=== PATIENT | male | born 1975 | race Caucasian/White ===

== ENCOUNTER 2017-09-15 18:40 | Emergency (ER) | payer OTHER ==
[~2017-09-15 18:40] MED LIST: ADVAIR DISKUS 21 DSK PO; ALPRAZOLAM0.5 M3 PO; AMLODIPINE BESYL5 M1 PO; AUGMENTIN 500M500 MG PO; AUGMENTIN 875-1 EACH PO; CITALOPRAM HBR40 MG PO; CITALOPRAM HYDR40 MG PO; DEPAKOTE250 MG PO; DEPAKOTE500 MG PO; DIVALPROEX SOD250 M2 PO; DIVALPROEX SOD500 M2 PO; ESCITALOPRAM20 MG PO; GABAPENTIN100 MG PO; GABAPENTIN300 M2 PO; GABAPENTIN300 MG PO; METHYLPREDNISONE4 MG PO; NORVASC 5MG TAB5 MG PO; PANTOPRAZOLE SO40 MG PO; PROAIR HFA0.09 MG/Ac INH; PROAIR HFA0.09 MG/Ac PO; QUETIAPINE FUM100 M1 PO; QUETIAPINE FUMA25 MG PO; SEROQUEL 25MG25 MG PO; TYLENOL WITH C1 EACH PO; VITAMIN D250000 UNIT PO
--- NOTE | 2017-09-15 18:50 | ED GENERAL ADULT ---
History of Present Illness General Chief Complaint: ETOH/Drug Related Complaint Stated Complaint: ETOH? Source: patient, EMS, friend Exam Limitations: poor historian, intoxication Vital Signs & Intake/Output Vital Signs & Intake/Output Vital Signs Date Time Temp Pulse Resp B/P B/P Pulse O2 O2 Flow FiO2 Mean Ox Delivery Rate 09/16 0621 97.4 85 18 115/58 98 Room Air 09/16 0205 97.5 75 14 116/71 97 Room Air 09/15 2359 80 104/59 09/15 2218 98.9 75 16 97/55 97 Room Air 09/15 1852 98.6 104 17 131/75 97 Room Air Allergies Coded Allergies: NO KNOWN ALLERGIES (02/22/16) Reconcile Medications Amlodipine Besylate 5 MG TABLET 1 TAB PO DAILY HTN (Reported) Citalopram Hydrobromide (Citalopram HBr) 40 MG TABLET 1 TAB PO DAILY MENTAL HEALTH (Reported) Divalproex Sodium 250 MG TABLET.DR 1 TAB PO BID SEIZURES (Reported) Divalproex Sodium 500 MG TABLET.DR 1 TAB PO BID SEIZURES (Reported) Ergocalciferol (Vitamin D2) (Vitamin D2) 50,000 UNIT CAPSULE 1 CAP PO QW SUPPLEMENT (Reported) Gabapentin 300 MG CAPSULE 1 CAP PO BID SEIZURES (Reported) Quetiapine Fumarate 100 MG TABLET 1.5 TAB PO QPM INSOMNIA (Reported) Triage Note: PT BROUGHT TO ED BY FRIENDS WITH REPORT OF SEIZURE ACTIVITY WITNESSED BY FRIENDS. REPORTS SEIZURE HX, ARRIVES ALERT, IMPULSIVE, FORGETFUL. BLOOD SUGAR 88 ON ARRIVAL. PT DENIES DAILY ETOH USE OR DRUG USE Triage Nurses Notes Reviewed? yes Onset: Abrupt Duration: hour(s): Timing: recent history HPI: 09/15/17 8 PM 41-year-old male presents to the emergency department after a generalized seizure. The patient apparently has a history of seizures. He was in the back of a car and had a seizure. He presented to the emergency department post ictal. He was combative. No history of trauma. The patient's mother later arrived at the ED and stated that he has posttraumatic brain injury, has a plate in his head, at this time now 8:20 PM he is awake alert and oriented 3 and is no longer agitated. He was initially put in restraints but these will not be discontinued. (Tejas Vargas DO) Past History Travel History Traveled to [place] past 21 day No Medical History Any Pertinent Medical History? 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 No (Tejas Vargas DO) Review of Systems Review of Systems Constitutional: Reports: no symptoms. EENTM: Reports: see HPI. Respiratory: Reports: no symptoms. Cardiovascular: Reports: no symptoms. GI: Reports: no symptoms. Genitourinary: Reports: no symptoms. Musculoskeletal: Reports: no symptoms. Skin: Reports: no symptoms. Neurological/Psychological: Reports: see HPI. Hematologic/Endocrine: Reports: no symptoms. Immunologic/Allergic: Reports: no symptoms. (Tejas Vargas DO) Physical Exam Physical Exam General Appearance: alert, awake, anxious, severe distress Head: normal appearance Eyes: Bilateral: normal appearance, PERRL, EOMI. Ears, Nose, Throat: normal pharynx, normal ENT inspection Neck: normal inspection, supple Respiratory: normal breath sounds, chest non-tender, no respiratory distress Cardiovascular: regular rate/rhythm Peripheral Pulses: 4+ radial (R), 4+ radial (L) Gastrointestinal: non-tender Back: normal range of motion Extremities: normal inspection Neurologic/Psych: awake, postictal, nonfocal Skin: intact, normal color, warm/dry Core Measures ACS in differential dx? No CVA/TIA Diagnosis: No Sepsis Present: No Sepsis Focused Exam Completed? No (Tejas Vargas DO) Progress Differential Diagnoses I considered the following diagnoses in my evaluation of the patient: [Seizure disorder traumatic brain injury, intracranial bleed, drug intoxication, alcohol intoxication, alcohol withdrawal] Plan of Care: Orders Procedure Date/time Status Regular Diet 09/16 B Active Restraint- Discontinue 09/15 2025 Active Add-on Test (ER Only) 09/16 1999 Active Patient Safety Monitor 09/16 1999 Active Restraint- Behavioral (Order) 09/16 1999 Active TROPONIN LEVEL 09/15 1899 Complete URINE DRUGS OF ABUSE 09/15 1856 Complete ETHANOL 09/15 1856 Complete DEPAKOTE LEVEL 09/15 1856 Complete COMPREHENSIVE METABOLIC PANEL 09/15 1856 Complete CBC WITHOUT DIFFERENTIAL 09/15 1856 Complete Laboratory Tests 09/16/17 0625: Urine Opiates Screen < 100, Methadone Screen 43, Barbiturate Screen < 60, Ur Phencyclidine Scrn < 6.00, Amphetamines Screen < 100, U Benzodiazepines Scrn < 85, Urine Cocaine Screen < 50, Urine Cannabis Screen < 5.00 09/15/171899: Anion Gap 23 H, Estimated GFR > 60, BUN/Creatinine Ratio 5.6 L, Glucose 90, Calcium 9.5, Total Bilirubin 0.8, AST 65 H, ALT 28, Alkaline Phosphatase 78, Troponin I < 0.01, Total Protein 7.5, Albumin 4.7, Globulin 2.8, Albumin/ Globulin Ratio 1.7, CBC w Diff NO MAN DIFF REQ, RBC 4.74, MCV 92.7, MCH 30.3, MCHC 32.7 L, RDW 15.4 H, MPV 7.7, Gran % 51.6, Lymphocytes % 39.9, Monocytes % 7.0, Eosinophils % 1.1, Basophils % 0.4, Absolute Granulocytes 6.7 H, Absolute Lymphocytes 5.2 H, Absolute Monocytes 0.9 H, Absolute Eosinophils 0.1, Absolute Basophils 0, Valproic Acid 46.9 L, Serum Alcohol < 10.0 Initial ED EKG: pending Comments: 09/15/17 The patient was signed out to Dr. Mann at 7:30. (Tejas Vargas DO) Diagnostic Imaging: Viewed by Me: CT Scan. Discussed w/RAD: CT Scan. Radiology Impression: 1. There are no acute bleeds or new territorial infarcts. 2. There are sequelae of a right calvarial cranioplasty. There is a stable large area of gliosis and encephalomalacia in the right temporoparietal region. Hand-Off Endorsed To: Tejas Nettles MD Endorsed Time: 0700 Pending: other (mother 8AM) (Osei Mann MD) Comments: 09/16/2017 7:16:33 AM patient signed out to me by at shift private branch exchange service adviser. (Yoon STINSON,Tejas Geiger) Departure Departure Disposition: STILL A PATIENT Condition: Stable Clinical Impression Primary Impression: Seizure disorder Secondary Impressions: Agitation Departure Forms: Customer Survey General Discharge Information (Tejas Vargas DO) Departure Referrals: De STINSON,Rubens Lara (PCP/Family) (Osei Mann MD) Critical Care Note Critical Care Note Critical Care Time: 30-74 min (Tejas Vargas DO)
[2017-09-15 19:09] LABS: ABSOLUTE BASOPHIL COUNT 0 /CUMM (0.0-0.2); ABSOLUTE EOSINOPHIL COUNT 0.1 /CUMM (0.0-0.7); ABSOLUTE GRANULOCYTE CT 6.7 /CUMM (1.4-6.5); ABSOLUTE LYMPH COUNT 5.2 /CUMM (1.2-3.4); ABSOLUTE MONOCYTE COUNT 0.9 /CUMM (0.10-0.60); BASOPHIL % 0.4 % (0.0-2.0); EOSINOPHIL % 1.1 % (0-5); GRANULOCYTE % 51.6 % (42.2-75.2); HEMATOCRIT 43.9 % (42-52); MEAN CORPUSCULAR HGB 30.3 PG (27.0-31.0); MEAN CORPUSCULAR HGB CONC 32.7 G/DL (33.0-37.0); MEAN CORPUSCULAR VOLUME 92.7 FL (80.0-94.0); MEAN PLATELET VOLUME 7.7 FL (7.4-10.4); PLATELET COUNT 257 /CUMM (130-400); RBC DISTRIBUTION WIDTH 15.4 % (11.5-14.5); RED BLOOD CELL CT 4.74 /CUMM (4.70-6.10)
--- NOTE | 2017-09-15 21:21 | CT SCAN REPORT ---
EXAMINATION: CT HEAD WITHOUT CONTRAST CLINICAL INFORMATION: Altered mental status and seizure. COMPARISON: CT scan of the head 02/22/2016. TECHNIQUE: Contiguous axial imaging was performed from the skull base to vertex without intravenous administration of contrast. DLP: 615.94 mGy-cm FINDINGS: The study redemonstrates the sequelae of the right temporoparietal frontal cranioplasty. Mixed density material is noted subjacent to the cranioplasty flap, which has a similar appearance compared to the prior study, consistent with postoperative changes. Linear lucencies through the cranioplasty material appear unchanged. The study redemonstrates gliosis and encephalomalacia in the right temporoparietal regions, which appear unchanged. There is ex-vacuo dilatation of the trigone, temporal horn and posterior body of the right lateral ventricle adjacent to the encephalomalacia, and the findings are consistent with chronic changes. Elsewhere the ventricles appear normal. There is no evidence of acute intracranial hemorrhage or territorial infarction. No abnormal mass effect or midline shift is seen. Elsewhere, sepulveda to white matter differentiation is well preserved. No extra-axial fluid collections are identified. There are no acute osseous findings. The soft tissues are unremarkable. The visualized mastoid air cells are well-aerated. There is mild mucoperiosteal thickening in the bilateral ethmoid sinuses. IMPRESSION: 1. There are no acute bleeds or new territorial infarcts. 2. There are sequelae of a right calvarial cranioplasty. There is a stable large area of gliosis and encephalomalacia in the right temporoparietal region.
[2017-09-16 07:56] VITALS: BP 118/63
== END 2017-09-16 08:11 ==
LOC: ERH 18:40
PROVIDERS: Emergency Medicine
DX: G40.909 Epilepsy, unspecified, not intractable, without status epilepticus (principal); R45.1 Restlessness and agitation; F10.10 Alcohol abuse, uncomplicated
CPT/HCPCS: 80307; 96374; G0480

== ENCOUNTER 2017-09-17 16:24 | Emergency (ER) | payer OTHER ==
[~2017-09-17] VITALS: Ht 193 cm; Wt 106.6 kg
--- NOTE | 2017-09-17 17:02 | ED PSYCHIATRIC COMPLAINT ---
History of Present Illness General Chief Complaint: ETOH/Drug Related Complaint Stated Complaint: "BIBA PER EMS ETOH" Source: patient, family, EMS, police Exam Limitations: no limitations Vital Signs & Intake/Output Vital Signs & Intake/Output Vital Signs Date Time Temp Pulse Resp B/P B/P Pulse O2 O2 Flow FiO2 Mean Ox Delivery Rate 09/17 1633 97.8 77 18 99/58 96 Room Air Allergies Coded Allergies: NO KNOWN ALLERGIES (02/22/16) Reconcile Medications Amlodipine Besylate 5 MG TABLET 1 TAB PO DAILY HTN (Reported) Citalopram Hydrobromide (Citalopram HBr) 40 MG TABLET 1 TAB PO DAILY MENTAL HEALTH (Reported) Divalproex Sodium 250 MG TABLET.DR 1 TAB PO BID SEIZURES (Reported) Divalproex Sodium 500 MG TABLET.DR 1 TAB PO BID SEIZURES (Reported) Ergocalciferol (Vitamin D2) (Vitamin D2) 50,000 UNIT CAPSULE 1 CAP PO QW SUPPLEMENT (Reported) Gabapentin 300 MG CAPSULE 1 CAP PO BID SEIZURES (Reported) Quetiapine Fumarate 100 MG TABLET 1.5 TAB PO QPM INSOMNIA (Reported) Triage Note: BIBA FROM HOME, PER EMS MOTHER CALLED 911 DUE TO PATIENT BEING INTOXICATED. PATIENT STATES HE HAS A HISTORY OF ALCOHOL ABUSE AND WAS SEEN RECENTLY IN THE ER. PATIENT IS ALERT, ORIENTED, SPEECH IS SLURRED. PATIENT CHANGED INTO HOSPITAL GOWN. PATIENT ARRIVES ON PEC FROM POLICE. SECURITY AT BEDSIDE FOR WANDING. Triage Nurses Notes Reviewed? yes Onset: Just prior to arrival Duration: minute(s):, constant, continues in ED Timing: recent history Severity: moderate HPI: Prior to admission his mother called the police because he was intoxicated and has had an alcohol problem. He denies fever chills nausea vomiting diarrhea abdominal pain chest pain shortness breath headache dysuria rash bleeding and does not request detox Past History Travel History Traveled to [place] past 21 day No Medical History Any Pertinent Medical History? 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 No Review of Systems Review of Systems Constitutional: Reports: no symptoms. EENTM: Reports: no symptoms. Respiratory: Reports: no symptoms. Cardiovascular: Reports: no symptoms. GI: Reports: no symptoms. Genitourinary: Reports: no symptoms. Musculoskeletal: Reports: no symptoms. Skin: Reports: no symptoms. Neurological/Psychological: Reports: see HPI, confusion. Hematologic/Endocrine: Reports: no symptoms. Immunologic/Allergic: Reports: no symptoms. All Other Systems: Reviewed and Negative Physical Exam Physical Exam General Appearance: well developed/nourished, alert, awake, comfortable, intoxicated Head: atraumatic, normal appearance Eyes: Bilateral: normal appearance, PERRL, EOMI. Ears, Nose, Throat: normal pharynx, normal ENT inspection, hearing grossly normal Neck: normal inspection, supple Respiratory: normal breath sounds Cardiovascular: regular rate/rhythm Gastrointestinal: soft, non-tender Extremities: normal range of motion Neurological/Psychiatric: awake, alert, anxious, animal care technician II-XII nml as tested Appearance/Memory/Insight: disheveled, impaired insight Behavoir/Eye Contact/Speech: cooperative Thoughts/Hallucinations: no apparent hallucination Skin: intact, normal color, warm/dry SAD PERSONS Done? patient not suicidal Progress Differential Diagnosis: drug intoxication, drug overdose, drug withdrawal Plan of Care: Observation for sobriety Sober ride Departure Departure Disposition: HOME OR SELF CARE Condition: Stable Clinical Impression Primary Impression: Alcohol intoxication delirium Referrals: Rubens Kc MD (PCP/Family) Departure Forms: Customer Survey General Discharge Information
[2017-09-17 22:06] VITALS: BP 97/52
== END 2017-09-17 23:43 ==
LOC: ERH 16:24
DX: F10.121 Alcohol abuse with intoxication delirium (principal)

== ENCOUNTER 2017-09-24 17:46 | Emergency (ER) | payer OTHER ==
[~2017-09-24] VITALS: Ht 193 cm; Wt 102.1 kg
[2017-09-24 18:45] LABS: ABSOLUTE BASOPHIL COUNT 0 /CUMM (0.0-0.2); ABSOLUTE EOSINOPHIL COUNT 0.3 /CUMM (0.0-0.7); ABSOLUTE GRANULOCYTE CT 2.5 /CUMM (1.4-6.5); ABSOLUTE LYMPH COUNT 3.9 /CUMM (1.2-3.4); ABSOLUTE MONOCYTE COUNT 0.5 /CUMM (0.10-0.60); BASOPHIL % 0.4 % (0.0-2.0); EOSINOPHIL % 3.9 % (0-5); GRANULOCYTE % 35.1 % (42.2-75.2); HEMATOCRIT 40.4 % (42-52); MEAN CORPUSCULAR HGB 30.7 PG (27.0-31.0); MEAN CORPUSCULAR HGB CONC 32.9 G/DL (33.0-37.0); MEAN CORPUSCULAR VOLUME 93.1 FL (80.0-94.0); MEAN PLATELET VOLUME 8.1 FL (7.4-10.4); PLATELET COUNT 175 /CUMM (130-400); RBC DISTRIBUTION WIDTH 14.5 % (11.5-14.5); RED BLOOD CELL CT 4.34 /CUMM (4.70-6.10); WHITE BLOOD CELL COUNT 7.1 /CUMM (4.8-10.8)
--- NOTE | 2017-09-24 19:17 | ED GENERAL ADULT ---
See Addendum History of Present Illness General Chief Complaint: ETOH/Drug Related Complaint Stated Complaint: BIBA FOR ETOH Source: patient, EMS, police Exam Limitations: intoxication Vital Signs & Intake/Output Vital Signs & Intake/Output Vital Signs Date Time Temp Pulse Resp B/P B/P Pulse O2 O2 Flow FiO2 Mean Ox Delivery Rate 09/25 624 98.7 78 18 115/74 96 Room Air 09/25 0539 98.9 76 18 100/60 96 Room Air / 0035 70 20 92/58 95 05/05 0030 70 20 92/58 05/ 2236 68 18 80/50 05/04 2224 68 18 80/50 95 Room Air / 202 90 18 82/50 / 202 90 18 82/50 93 Room Air / 1839 97.9 94 18 110/68 05/ 1819 97.9 94 18 110/68 98 Room Air / 181 98.3 74 16 104/60 95 Room Air ED Intake and Output 09/25 0000 09/24 1200 Intake Total 3480 Output Total Balance 3480 Intake, IV 3000 Intake, Oral 480 Patient 225 lb Weight Weight Reported by Patient Measurement Method Allergies Coded Allergies: NO KNOWN ALLERGIES (02/22/16) Reconcile Medications Amlodipine Besylate 5 MG TABLET 1 TAB PO DAILY HTN (Reported) Citalopram Hydrobromide (Citalopram HBr) 40 MG TABLET 1 TAB PO DAILY MENTAL HEALTH (Reported) Divalproex Sodium 250 MG TABLET.DR 1 TAB PO BID SEIZURES (Reported) Divalproex Sodium 500 MG TABLET.DR 1 TAB PO BID SEIZURES (Reported) Ergocalciferol (Vitamin D2) (Vitamin D2) 50,000 UNIT CAPSULE 1 CAP PO QW SUPPLEMENT (Reported) Gabapentin 300 MG CAPSULE 1 CAP PO BID SEIZURES (Reported) Quetiapine Fumarate 100 MG TABLET 1.5 TAB PO QPM INSOMNIA (Reported) Triage Note: BIBA ON PEER FOR ETOH INTOXICATION. PT ADMITS TO DRINKING 12 PACK BEER DAILY. TODAY MOTHER CALLED POLICE BECAUSE PT WAS DRUNK AND SHE FEARED HE WAS GOING TO HURT HIMSELF BECAUSE HE WAS SITTING IN YARD CLOSE TO A "PIPPA" LIKE EMBANKMENT. UPON ARRIVAL PT COOPERATIVE. UNSTEADY GAIT. ASKING FOR SOMETHING TO EAT. ALERT, SPEECH SLURRED Triage Nurses Notes Reviewed? yes Unable To Obtain Hx Due To: patient intoxication Onset: Abrupt Duration: day(s): (1), constant, continues in ED, getting worse Timing: recent history Injury Environment: home Severity: moderate, severe No Modifying Factors: none HPI: 41-year-old male past medical history of alcohol abuse, hypertension, TBI with associated seizure this evaluation on a police paper of alcohol abuse. According to EMS patient's mother called police because he was very intoxicated and was sitting near the edge of a pippa. She was afraid that he was going to jump off and hurt himself. Patient denies this. He denies any suicidal or homicidal ideation. Doesn't drink 12 beers today. He denies any history of alcohol withdrawal seizures does have a history of seizures related to TBI. Is not taking any medicine currently. He denies drug use. Is not depressed no hallucinations. No chest pain shortness of breath nausea vomiting or diarrhea. No fever. (Kai Hong) Past History Travel History Traveled to [place] past 21 day No Medical History Any Pertinent Medical History? 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 No (Kai Hong) Review of Systems Review of Systems Constitutional: Reports: no symptoms. EENTM: Reports: no symptoms. Respiratory: Reports: no symptoms. Cardiovascular: Reports: no symptoms. GI: Reports: no symptoms. Genitourinary: Reports: no symptoms. Musculoskeletal: Reports: no symptoms. Skin: Reports: no symptoms. Neurological/Psychological: Reports: see HPI. Hematologic/Endocrine: Reports: no symptoms. Immunologic/Allergic: Reports: no symptoms. All Other Systems: Reviewed and Negative (Kai Hong) Physical Exam Physical Exam General Appearance: well developed/nourished, no apparent distress, alert, awake Head: atraumatic, normal appearance Eyes: Bilateral: normal appearance, PERRL, EOMI. Ears, Nose, Throat: normal pharynx, normal ENT inspection, hearing grossly normal Neck: normal inspection, supple, full range of motion Respiratory: normal breath sounds, chest non-tender, no respiratory distress, lungs clear Cardiovascular: regular rate/rhythm, normal peripheral pulses Peripheral Pulses: 2+ radial (R), 2+ radial (L) Gastrointestinal: soft, non-tender Back: normal inspection, normal range of motion Extremities: normal inspection, normal range of motion, no edema Neurologic/Psych: no motor/sensory deficits, awake, alert, oriented x 3 Skin: intact, normal color, warm/dry Lymphatic: no anterior cervical lucas Core Measures ACS in differential dx? No CVA/TIA Diagnosis: No Sepsis Present: No Sepsis Focused Exam Completed? No (Kai Hong) Progress Differential Diagnoses I considered the following diagnoses in my evaluation of the patient: [Alcohol to complication, alcohol withdrawal, drug intoxication, drug withdrawal, electrolyte upper malady] Plan of Care: Orders Procedure Date/time Status Regular Diet 09/25 B Active Continuous Observation Monitor 09/25 33 Active Continuous Observation Monitor 09/24 1952 Active ED CRISIS PSYCH CONSULT 09/24 1952 Active Add-on Test (ER Only) 09/25 1951 Active URINALYSIS 09/24 1809 Complete URINE DRUG SCREEN FOR ER ONLY 09/24 1754 Complete MAGNESIUM 09/24 1754 Complete ETHANOL 09/24 1754 Complete COMPREHENSIVE METABOLIC PANEL 09/24 1754 Complete CBC WITHOUT DIFFERENTIAL 09/24 1754 Complete Laboratory Tests 09/24/171809: Serum Alcohol 293.0 09/24/171809: Anion Gap 12, Estimated GFR > 60, BUN/Creatinine Ratio 14.3, Glucose 81, Calcium 8.1 L, Magnesium 1.9, Total Bilirubin 0.3, AST 19, ALT 20 L, Alkaline Phosphatase 56, Total Protein 5.8 L, Albumin 3.3 L, Globulin 2.5, Albumin/ Globulin Ratio 1.3, CBC w Diff NO MAN DIFF REQ, RBC 4.34 L, MCV 93.1, MCH 30.7, MCHC 32.9 L, RDW 14.5, MPV 8.1, Gran % 35.1 L, Lymphocytes % 54.1 H, Monocytes % 6.5, Eosinophils % 3.9, Basophils % 0.4, Absolute Granulocytes 2.5, Absolute Lymphocytes 3.9 H, Absolute Monocytes 0.5, Absolute Eosinophils 0.3, Absolute Basophils 0, Urine Opiates Screen < 100, Methadone Screen 54, Barbiturate Screen < 60, Ur Phencyclidine Scrn < 6.00, Amphetamines Screen < 100 , U Benzodiazepines Scrn < 85, Urine Cocaine Screen < 50, Urine Cannabis Screen < 5.00, Urine Color YEL, Urine Clarity CLEAR, Urine pH 6.5, Ur Specific [place] <= 1.005, Urine Protein NEG, Urine Ketones NEG, Urine Nitrite NEG, Urine Bilirubin NEG, Urine Urobilinogen 1.0, Ur Leukocyte Esterase NEG, Ur Microscopic EXAM NOT REQUIRED, Urine Hemoglobin NEG, Urine Glucose NEG Patient seen and evaluated. He is here on a police paper for evaluation of alcohol intoxication. He denies feeling suicidal or homicidal. No hallucinations. He currently is intoxicated with alcohol level of 293. Patient will be held over for evaluation by crisis he is on a police paper. Remaining blood work is not severely changed. Patient states she is currently not taking any medicine. Signed out to Dr. Ken pending crisis Initial ED EKG: none (Kai Hong) Differential Diagnoses I considered the following diagnoses in my evaluation of the patient: alcohol intoxication vs drugs vs psychiatric illness Hand-Off Endorsed To: Osei Mann MD Endorsed Time: 0700 Pending: consult (Jesus Manuel STINSON,Young Mckeon) Comments: Cleared by psychiatry for discharge. (Osei Mann MD) Departure Departure Disposition: HOME OR SELF CARE Condition: Stable Clinical Impression Primary Impression: Alcohol intoxication Qualifiers: Complication of substance-induced condition: uncomplicated Qualified Code: F10.920 - Alcohol use, unspecified with intoxication, uncomplicated Referrals: Rubens Kc MD (PCP/Family) Departure Forms: Customer Survey General Discharge Information (Kai Hong) PA/TRUST OFFICER Co-Sign Statement Statement: ED Attending supervision documentation- [] I saw and evaluated the patient. I have also reviewed all the pertinent lab results and diagnostic results. I agree with the findings and the plan of care as documented in the PA's/TRUST OFFICER's documentation. [x] I have reviewed the ED Record and agree with the PA's/TRUST OFFICER's documentation. [] Additions or exceptions (if any) to the PAs/TRUST OFFICER's note and plan are summarized below: [] (Jesus Manuel STINSON,Young Mckeon) Departure Time of Disposition: 1033 Additional Instructions: Follow up with the recommendations of the layout worker. (Mackenzie STINSON,Osei) Critical Care Note Critical Care Note Critical Care Time: non-applicable (Kai Hong) ED Attending Observation Initial Observation Note: I have seen and personally examined NURY MOORE on 09/24/17 at 2019. I agree with the current emergency department documentation. The disposition (admission or discharge) is uncertain at this time, he needs a period of observation for the following reason(s): The ED Nurse caring for this patient has been personally informed as to what the patient is being observed for. (Kai Hong)
--- NOTE | 2017-09-25 07:52 | ED PSYCH CRISIS CONSULTATION ---
Crisis Consult Basic Assessment Date of Consult: 09/24/17 Responsible Person/Accompanied By: self/biba Insurance Authorization: Insurance #1: Insurance name: LUCILLE BARRETT Phone number: Policy number: [id number] Group number: Authorization number: ED Provider: Patient's ED Provider: Kai Hong Primary Care Physician: Patient's PCP: De STINSON,Rubens Lara PCP's Current Psychiatrist: PCP Rubens prescribing meds Chief Complaint: ETOH/Drug Related Complaint Patient's Quote: had a couple beers... that's it. Present Illness: Pt is a 41 yo male biba yesterday to [facility] on an [facility] PEER. PEER documents Alcohol and drinking as reason for pt to transport to [facility] for evaluation. Pt ED BAL:293. Pt reports he was drinking beer after work and doesn' t know why the police were called. Pt denies SI/HI. Pt reports no hx of SI and no hx of suicide attempts. Pt denies owning a gun. Pt reports no prior mental health tx. Pt reports he is prescribed depakote and gabapentin for seizures by his PCP. 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 He denies depression; he denies anxiety. He reports no concerns. Collateral provided by mother indicates that pt has had prior etoh treatment episodes. She reports he has had past medical etoh detoxes at [facility] and was recently at [facility] for 3 months. She reports pt relapsed last week and is concerned he needs to get back into more intensive etoh treatment. She reports he is currently court ordered for 1x/wk outpatient tx at [facility]. She reports he received a disorderly conduct charge yesterday when she called the police and will have to appear in court on Wednesday. Case reviewed with Dr Gayle. Pt is not interested in inpatient etoh treatment at this time. Pt is recommended to follow up with his providers on Wednesday at [facility] for continued outpatient treatment. Recommendation reviewed with pt. Mother aware of recommendation and will transport pt home from ED. Patient's Address: [address] [place] [address] Other Phone Number: Who Do You Live With? Mother Family/Informants Interviewed: collateral provided by pt mother Cristal [phone]. She reports calling 911 yesterday because the pt was so intoxicated she "couldn't deal with it". She reports she was concerned because he was falling all over the place. She reports his drinking has made it difficult for him to maintain steady employment. 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 She reports he was in tx at [facility] and discharged home 3 months ago. She reports he was sober for about 2 months but recently relapsed. She reports he is mandated to attend tx at [facility] 1x/wk. She is aware that at this time pt can't be involuntarily admitted inpatient for alcohol use d/o. 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 Allergies - Coded Allergies: NO KNOWN ALLERGIES (02/22/16) Current Medications - Scheduled Medications Amlodipine Besylate 5 MG TABLET 1 TAB PO DAILY HTN #30 (Reported) Entered as Reported by Tina Rivas on 01/05/17 141 Citalopram Hydrobromide (Citalopram HBr) 40 MG TABLET 1 TAB PO DAILY MENTAL HEALTH #30 (Reported) Entered as Reported by Tina Rivas on 01/05/17 141 Divalproex Sodium 250 MG TABLET.DR 1 TAB PO BID SEIZURES #60 (Reported) Entered as Reported by Tina Rivas on 01/05/17 141 Divalproex Sodium 500 MG TABLET.DR 1 TAB PO BID SEIZURES #180 (Reported) Entered as Reported by Tina Rivas on 01/05/17 141 Ergocalciferol (Vitamin D2) (Vitamin D2) 50,000 UNIT CAPSULE 1 CAP PO QW SUPPLEMENT #4 (Reported) Entered as Reported by Tina Rivas on 01/05/17 141 Gabapentin 300 MG CAPSULE 1 CAP PO BID SEIZURES #120 (Reported) Entered as Reported by Tina Rivas on 01/05/17 141 Quetiapine Fumarate 100 MG TABLET 1.5 TAB PO QPM INSOMNIA #90 (Reported) Entered as Reported by Tina Rivas on 01/05/17 141 Laboratory Results: Laboratory Tests 09/24/170: Serum Alcohol 293.0 09/24/17 1810: Anion Gap 12, Estimated GFR > 60, BUN/Creatinine Ratio 14.3, Glucose 81, Calcium 8.1 L, Magnesium 1.9, Total Bilirubin 0.3, AST 19, ALT 20 L, Alkaline Phosphatase 56, Total Protein 5.8 L, Albumin 3.3 L, Globulin 2.5, Albumin/ Globulin Ratio 1.3, CBC w Diff NO MAN DIFF REQ, RBC 4.34 L, MCV 93.1, MCH 30.7, MCHC 32.9 L, RDW 14.5, MPV 8.1, Gran % 35.1 L, Lymphocytes % 54.1 H, Monocytes % 6.5, Eosinophils % 3.9, Basophils % 0.4, Absolute Granulocytes 2.5, Absolute Lymphocytes 3.9 H, Absolute Monocytes 0.5, Absolute Eosinophils 0.3, Absolute Basophils 0, Urine Opiates Screen < 100, Methadone Screen 54, Barbiturate Screen < 60, Ur Phencyclidine Scrn < 6.00, Amphetamines Screen < 100 , U Benzodiazepines Scrn < 85, Urine Cocaine Screen < 50, Urine Cannabis Screen < 5.00, Urine Color YEL, Urine Clarity CLEAR, Urine pH 6.5, Ur Specific [place] <= 1.005, Urine Protein NEG, Urine Ketones NEG, Urine Nitrite NEG, Urine Bilirubin NEG, Urine Urobilinogen 1.0, Ur Leukocyte Esterase NEG, Ur Microscopic EXAM NOT REQUIRED, Urine Hemoglobin NEG, Urine Glucose NEG Past History Past Medical History Neurological: seizure, TBI EENT: NONE Cardiovascular: HYPERTENSION Respiratory: bronchitis Gastrointestinal: GASTRIC BYPASS PANCREATITIS Hepatic: NONE Renal: NONE Musculoskeletal: NONE Psychiatric: anxiety, depression, ETOH ABUSE Endocrine: NONE Blood Disorders: THROMBOCYTOPENIA Cancer(s): NONE MEDICAL RECORD RETRIEVAL SPECIALIST/Reproductive: NONE Past Surgical History Surgical History: non-contributory Psychosocial History Strengths/Capabilities: 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; 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 [employer] Psychiatric Treatment History Psych Treatment Psychiatric Treatment No Inpatient Treatment No Outpatient Treatment No Substance Use/Abuse History Drug Use/Abuse Substances Used/Abused Yes Substance Used/Abused Alcohol First Use age 12 Last Used yesterday How much used/taken 24 beers per week Substance Abuse Treatment Substance Abuse Treatment Past Substance Abuse TX Yes Inpatient Treatment Yes Outpatient Treatment Yes Location of Treatment [facility] Reason for Treatment alcohol use disorder Dates of Treatment detox tx since 2013 Response to Treatment pt continues to struggle with sobriety Comments: pt reports drinking case of beer per week. He denies interest or need for detox or outpatient etoh treatment Current Mental Status Mental Status Orientation: Person, Place, Situation Affect: WNL Speech: WNL Neuro-vegetative: WNL Behaviors Thought Process: WNL Thought Content: WNL Memory: WNL Insight: Fair SI/HI Risk Assessment Past Suicidal Ideation/Attempts No Current Suicidal Ideation/Att No Past Homicidal Ideation/Att: No Current Homicidal Ideation/Attempts No Degree of Intent: None Risk Factors: substance abuse, male Lethality Ratin PTSD Checklist PTSD Done? patient declined ED Management Sitter: Yes Restraints: No DSM5/PS Stressors/Medical Prob Diagnosis' (DSM 5, Stressors, Medical): Alcohol Use d/o F10.20 Current GAF: 40 Comments: Pt relapsed last weeks after 2 months sobriety following rehab stay at [facility]. Pt is currently mandated to [facility] for outpatient tx. Departure Disposition Psych Medical Clearance Date: 09/25/17 Medically Cleared at: 0715 Time Started: 714 Time Ended: 799 Psychiatrist Consulted: Young Gayle MD Date Disposition Established: 09/25/17 Time Disposition Established: 929 Plan for Disposition - Modality: Outpatient Facility: [facility] Follow-up Appt Date: 09/27/17 Rationale for Disposition: Pt will follow up with his provider at [facility] Referrals Rubens Kc MD (PCP/Family)
[2017-09-25 11:12] VITALS: BP 110/70
== END 2017-09-25 11:12 ==
LOC: ERH 17:46
PROVIDERS: Physician Assistant Medical
DX: F10.129 Alcohol abuse with intoxication, unspecified (principal)
CPT/HCPCS: 80307; 81003; 96360; 96361; G0463; G0480